=== PATIENT | female | born 1955 | race Caucasian/White ===

== ENCOUNTER 2017-09-02 19:45 | Emergency (ER) | payer OTHER ==
[2017-09-02] MEDS ORDERED: DEXTROSE 5 %-0.45 % SOD CHLORD 1,000 ML IV ONE (20:04)
[2017-09-02 20:21] LABS: BASOPHILS % 0.7 (0.0-1.5); EOSINOPHILS % 2.1 % (0.0-6.8); MEAN CORPUSCULAR HEMOGLOBIN 31.6 pg (28.0-34.0); MEAN CORPUSCULAR VOLUME 95.7 fl (80.0-100.0); MONOCYTES % 7.1 % (0.0-11.0); NEUTROPHILS # 5.6 # k/uL (1.4-7.7)
[2017-09-02 20:32] LABS: eGFR (Non-African) > 60
--- NOTE | 2017-09-02 20:45 | ED Physician Documentation ---
General Adult - HISTORIAN Historian: patient, paramedics - HPI Stated Complaint: low blood sugar Chief Complaint: General Adult Further Comments: yes (61 year old female patient brought in via EMS with blood glucose of 33; D50 - 1 amp given in route to ER. On arrival to Er blood sugar 131.) - ROS CONST: recent illness (frequent hypoglycemic episodes) EYES/ENT: none CVS/RESP: none GI/: none MS/SKIN/LYMPH: none NEURO/PSYCH: denies: headache - PAST HX Past History: hypertension, other (HTN) Other History: diabetes Type 2 Allergies/Adverse Reactions: Allergies Allergy/AdvReac Type Severity Reaction Status Date / Time ketorolac tromethamine Allergy Intermediate Rash Verified 09/02/17 20:25 [From Toradol] Sulfa (Sulfonamide Allergy Intermediate Rash Verified 09/02/17 20:25 Antibiotics) Home Medications: Ambulatory Orders Medication Instructions Recorded Basaglar 15 units SQ BID 09/02/17 Insulin Lispro 3Ml [Humalog] 1 unit SQ TID 09/02/17 Lisinopril [Lisinopril] 10 mg PO D 09/02/17 Lovastatin [Lovastatin] 20 mg PO HS 09/02/17 - SOCIAL HX Smoking History: denies: non-smoker - FAMILY HX Family History: No - VITAL SIGNS Vital Signs: Vital Signs Temp Pulse Resp BP Pulse Ox 97.5 F L 77 20 120/83 98 09/02/17 19:46 09/02/17 19:46 09/02/17 19:46 09/02/17 19:46 09/02/17 19:46 - REVIEWED ASSESSMENTS Nursing Assessment Reviewed: Yes Vitals Reviewed: Yes Progress - Progress Progress: Blood sugar now 87 - juice with peanut butter and crackers D51/2 started Will monitor in ER. 2229 Discharged home with daughter; do not drive [facility] ED Results Lab/Radiology - Lab Results Lab Results: Lab Results 09/02/17 09/02/17 20:18 20:18 WBC 8.50 K/ul K/ul (4.00-12.00) RBC 3.86 M/ul L M/ul (3.90-5.20) Hgb 12.2 g/dL g/dL (12.0-16.0) Hct 36.9 % % (34.5-46.5) MCV 95.7 fl fl (80.0-100.0) MCH 31.6 pg pg (28.0-34.0) MCHC 33.0 g/dL g/dL (30.0-36.0) RDW 13.0 % % (11.3-14.3) Plt Count 354 K/mm3 K/mm3 (130-400) Neut % (Auto) 66.1 % % (39.0-79.0) Lymph % (Auto) 22.2 % % (16.0-50.0) [place] % (Auto) 7.1 % % (0.0-11.0) Eos % (Auto) 2.1 % % (0.0-6.8) Baso % (Auto) 0.7 (0.0-1.5) Neut # (Auto) 5.6 # k/uL # k/uL (1.4-7.7) Lymph # (Auto) 1.9 # k/uL # k/uL (0.6-4.0) [place] # (Auto) 0.6 # k/uL # k/uL (0.0-0.9) Eos # (Auto) 0.2 # k/uL # k/uL (0.0-0.6) Baso # (Auto) 0.1 # k/uL # k/uL (0.0-0.5) Reactive Lymphs % 1.7 % % (0.0-5.0) Reactive Lymphs # 0.2 # k/uL # k/uL (0.0-0.8) Sodium 145 mmol/L mmol/L (136-145) Potassium 3.8 mmol/L mmol/L (3.5-5.1) Chloride 103 mmol/L mmol/L (98-107) Carbon Dioxide 26 mmol/L mmol/L (22-30) BUN 26 mg/dL H mg/dL (7-17) Creatinine 1.00 mg/dL mg/dL (0.52-1.04) Estimated Creat Clear 102 Est GFR ( Amer) > 60 (60 - ) Est GFR (Non-Af Amer) > 60 (60 - ) Glucose 72 mg/dL L mg/dL (74-106) Calcium 9.7 mg/dL mg/dL (8.4-10.2) Total Bilirubin 0.6 mg/dL mg/dL (0.2-1.3) AST 29 U/L U/L (15-46) ALT 26 U/L U/L (13-69) Alkaline Phosphatase 109 U/L U/L (38-126) Total Protein 6.9 g/dL g/dL (6.3-8.2) Albumin 4.1 g/dL g/dL (3.5-5.0) - Orders Orders: ED Orders Category Date Time Status CBC/PLATELET/DIFF Stat Lab 09/02/17 20:18 Completed CMP Stat Lab 09/02/17 20:18 Completed UA W/MICRO IF INDICATED Stat Lab 09/02/17 20:06 Ordered Chem Sticks Med 09/02/17 19:44 Ordered 1 each MC PRN Dextrose 5 %-0.45 % NaCl [D51/2Ns] 1,000 ml Med 09/02/17 20:04 Discontinued IV .STK-MED Dextrose 5 %-0.45 % NaCl [D51/2Ns] 1,000 ml Med 09/02/17 21:00 Ordered IV Q8H General Adult Physical Exam - PHYSICAL EXAM GENERAL APPEARANCE: mild distress EENT: eye inspection normal, [employer] RESPIRATORY: no resp distress, chest non-tender, breath sounds normal CVS: reg rate & rhythm, heart sounds normal, equal pulses, no murmur, no gallop , PMI nml, no JVD, no friction rub, 24 ABDOMEN: soft, no organomegaly, normal bowel sounds, no abdominal bruit, no distension SKIN: diaphoresis, pallor EXTREMITIES: non-tender, normal range of motion, no evidence of injury, no edema , J, 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 Call Endocrine office in the morning for instructions on your glucose monitor. Condition: Stable Disposition: 01 HOME, SELF-CARE Decision to Admit: NO Decision Time: 22:30
[2017-09-02] MEDS ORDERED: DEXTROSE 5 %-0.45 % SOD CHLORD 1,000 ML IV SCH (21:00)
[2017-09-02 23:02] VITALS: BP 146/62
== END 2017-09-02 22:46 | disposition home or self-care (01) ==
LOC: ED 19:45
DX: E16.2 Hypoglycemia, unspecified (principal); I10 Essential (primary) hypertension; E11.9 Type 2 diabetes mellitus without complications
CPT/HCPCS: 80053; 85025; 99282; 99283; S5010